=== PATIENT | female | born 1990 | race Caucasian/White ===

== ENCOUNTER 2022-02-28 20:59 | Emergency (ER) | payer OTHER ==
[~2022-02-28] VITALS: Ht 157.5 cm; Wt 68.0 kg
[2022-02-28 21:03] VITALS: BP 136/87
[2022-03-01] MEDS: BACITRACIN OINT 500 UNITS/GM PKT TP ONE (00:32)
[2022-03-01] MEDS: LIDOCAINE MPF 1% 10 MG/ML VIAL INJ ONE (00:33)
[2022-03-01] MEDS: KETOROLAC 60 MG/2 ML VIAL IM ONE (00:36)
[2022-03-01] MEDS ORDERED: IBUP-2213 PO (00:58)
[2022-03-01 01:09] VITALS: BP 132/82
== END 2022-03-01 01:09 | disposition home or self-care (01) ==
LOC: MED 20:59
DX: S61.210A Laceration without foreign body of right index finger without damage to nail, initial encounter (principal); F17.200 Nicotine dependence, unspecified, uncomplicated; W55.41XA Bitten by pig, initial encounter; Y93.89 Activity, other specified; Y92.89 Other specified places as the place of occurrence of the external cause; Y99.8 Other external cause status
CPT/HCPCS: 12001; 90471; 90715; 96372; 99284; J1885; J2001

== ENCOUNTER 2022-07-07 20:58 | Emergency (ER) | payer OTHER ==
[~2022-07-07] VITALS: Ht 157.5 cm; Wt 68.0 kg
[~2022-07-07 20:58] MED LIST: IBUP-2213 PO
[2022-07-07 21:05] VITALS: BP 130/59
--- NOTE | 2022-07-07 21:05 | NUR ---
TO BED AMBULATORY
--- NOTE | 2022-07-07 21:10 | NUR ---
RECEIVED IN BED 12 WITH C/O SOB , CHEST, BACK, LT EAR PAIN, 5 DAYS
[2022-07-07] MEDS ORDERED: KETOROLAC 30 MG/ML VIAL IM ONE (22:15)
[2022-07-07] MEDS ORDERED: predniSONE 20 MG TAB PO ONE (22:15)
[2022-07-07] MEDS ORDERED: ALBUTEROL SULFATE/IPRATROPIU 3 ML SOL IH ONE (22:15)
[2022-07-07] MEDS ORDERED: SUD30 PO (23:07)
[2022-07-07] MEDS ORDERED: FLONAS NS (23:07)
[2022-07-07] MEDS ORDERED: MUC600 PO (23:07)
[2022-07-07] MEDS ORDERED: ALBU0.0912 INH (23:07)
--- NOTE | 2022-07-07 23:09 | NUR ---
AMBULATED TO BR FOR UA.
--- NOTE | 2022-07-07 23:50 | NUR ---
Patient discharged with v/s stable. Written and verbal after care instructions given and explained. Patient alert, oriented and verbalized understanding of instructions. Ambulatory with steady gait. All questions addressed prior to discharge. ID band removed. Patient advised to follow up with PMD. Rx of PROVENTIL, FLONASE, MUCINEX, SUDAFED given. Patient educated on indication of medication including possible reaction and side effects. Opportunity to ask questions provided and answered.
[2022-07-07 23:51] VITALS: BP 130/59
== END 2022-07-07 23:51 | disposition home or self-care (01) ==
LOC: MED 20:58
DX: J45.909 Unspecified asthma, uncomplicated (principal); Z20.822 Contact with and (suspected) exposure to COVID-19; R09.82 Postnasal drip
CPT/HCPCS: 71045; 81025; 87426; 87804; 94640; 96372; 99284; J1885; J7512; Q0092